=== PATIENT | male | born 2000 | race Two or more races ===

== ENCOUNTER 2025-01-03 08:28 | Emergency (ER) | payer OTHER, SELFPAY ==
[2025-01-03 08:59] VITALS: BP 122/70; PULSE 94; RESP 16; TEMP 36.5; O2SAT 97
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
== END 2025-01-03 10:28 | disposition home or self-care (01) ==
LOC: ED 10:34
PROVIDERS: Emergency Provider Internal Medicine
DX: S51.011A Laceration without foreign body of right elbow, initial encounter (principal); V43.52XA Car driver injured in collision with other type car in traffic accident, initial encounter
CPT/HCPCS: 70450; 72125; 99283; 99291